=== PATIENT | male | born 1945 | race Hispanic/Latino ===

== ENCOUNTER → 2019-01-17 | Outpatient (CLI) | payer OTHER ==
[~2019-01-17] VITALS: Ht 177.8 cm; Wt 108.9 kg
[~2019-01-17] MED LIST: AMLO5TAB9 PO; BUSP15TA3 PO; CHOL100044 PO; CYAN100099 PO; HYDR25TA PO; LABE200T5 PO; MULT1CAP32 PO; RANO10004 PO; REGADENOSON 0.4 MG/5 ML PF SYG IVP SCH; TAMS-1 PO; VARD20TA PO
== END | disposition home or self-care (01) ==
LOC: SHCH 09:20
PROVIDERS: ATTEND Internal Medicine Cardiovascular Disease
DX: I25.10 Atherosclerotic heart disease of native coronary artery without angina pectoris (principal); I10 Essential (primary) hypertension; E78.5 Hyperlipidemia, unspecified
CPT/HCPCS: 78452; 93017; 96374; A9500 ×2; J2785

== ENCOUNTER 2019-01-22 07:56 | Day surgery (SDC) | payer OTHER ==
[~2019-01-22] VITALS: Ht 177.8 cm; Wt 102.5 kg
[~2019-01-22 07:56] MED LIST changes: -AMLO5TAB9 PO; -BUSP15TA3 PO; -CHOL100044 PO; -CYAN100099 PO; -HYDR25TA PO; -LABE200T5 PO; -MULT1CAP32 PO; -RANO10004 PO; -REGADENOSON 0.4 MG/5 ML PF SYG IVP SCH; +SODIUM CHLORIDE 0.9% 1000ML 1,000 ML IV ONE; -TAMS-1 PO; -VARD20TA PO
[2019-01-22 08:16] VITALS: BP 165/81
[2019-01-22] MEDS ORDERED: HYDR25TA PO (08:49)
[2019-01-22] MEDS ORDERED: VARD20TA PO (08:49)
[2019-01-22] MEDS ORDERED: TAMS-1 PO (08:49)
[2019-01-22] MEDS ORDERED: CHOL100044 PO (08:49)
[2019-01-22] MEDS ORDERED: MULT1CAP32 PO (08:49)
[2019-01-22] MEDS ORDERED: LABE200T5 PO (08:49)
[2019-01-22] MEDS ORDERED: BUSP15TA3 PO (08:49)
[2019-01-22] MEDS ORDERED: CYAN100099 PO (08:49)
[2019-01-22] MEDS ORDERED: AMLO5TAB9 PO (08:49)
[2019-01-22] MEDS ORDERED: RANO10004 PO (08:49)
[2019-01-22] MEDS ORDERED: PROPOFOL 10 MG/ML 20ML VIAL IV ONE (09:49)
[2019-01-22 10:08] VITALS: BP 123/65
[2019-01-22 10:12] VITALS: BP 132/71
[2019-01-22 10:17] VITALS: BP 140/71
[2019-01-22 10:24] VITALS: BP 133/65
== END 2019-01-22 10:42 | disposition home or self-care (01) ==
LOC: DAH 07:56 → ENDO 07:56
PROVIDERS: ATTEND Internal Medicine Gastroenterology
DX: D12.2 Benign neoplasm of ascending colon (principal); D12.5 Benign neoplasm of sigmoid colon; K57.30 Diverticulosis of large intestine without perforation or abscess without bleeding; K64.0 First degree hemorrhoids; I10 Essential (primary) hypertension; E11.9 Type 2 diabetes mellitus without complications; F41.9 Anxiety disorder, unspecified; F32.9 Major depressive disorder, single episode, unspecified; M19.90 Unspecified osteoarthritis, unspecified site; G47.30 Sleep apnea, unspecified; I25.2 Old myocardial infarction; K21.9 Gastro-esophageal reflux disease without esophagitis; Z95.0 Presence of cardiac pacemaker; Z85.46 Personal history of malignant neoplasm of prostate; Z90.49 Acquired absence of other specified parts of digestive tract; Z79.899 Other long term (current) drug therapy
CPT/HCPCS: 45380; 82948 ×2; 88305; 93005; A4606; J2704; J7030

== ENCOUNTER → 2019-01-23 | Outpatient (CLI) | payer OTHER ==
[~2019-01-23] MED LIST changes: +AMLO5TAB9 PO; +BUSP15TA3 PO; +CHOL100044 PO; +CYAN100099 PO; +HYDR25TA PO; +LABE200T5 PO; +MULT1CAP32 PO; +RANO10004 PO; -SODIUM CHLORIDE 0.9% 1000ML 1,000 ML IV ONE; +TAMS-1 PO; +VARD20TA PO
== END | disposition home or self-care (01) ==
LOC: RAH 07:50
PROVIDERS: ATTEND Internal Medicine Gastroenterology
DX: K76.0 Fatty (change of) liver, not elsewhere classified (principal)
CPT/HCPCS: 76700

== ENCOUNTER 2019-04-28 11:41 | Emergency (ER) | payer OTHER ==
[2019-04-28] MEDS ORDERED: SODIUM CHLORIDE 0.9% 1000ML 1,000 ML IV ONE (12:04)
[2019-04-28] MEDS ORDERED: ONDANSETRON HCL 4 MG/2 ML VIAL ONE (12:04)
[2019-04-28 12:33] LABS: BASOPHILS % (AUTO) 0.6 % (0.0-5.0); EOSINOPHILS % (AUTO) 3.4 % (0.0-8.0); HEMATOCRIT 36.7 % (42-54); LYMPHOCYTES % (AUTO) 25.7 % (21.0-51.0); MEAN CORPUSCULAR HGB CONC 34.1 g/dL (32.0-36.0); MEAN CORPUSCULAR VOLUME 87.9 fL (79-99); MONOCYTES % (AUTO) 8.5 % (3.0-13.0); NEUTROPHILS % (AUTO) 61.8 % (40.0-77.0); PLATELET COUNT (AUTO) 271 K/uL (130-400); RED BLOOD CELL COUNT(AUTO) 4.18 MIL/uL (4.50-6.20); RED CELL DISTRIBUTION WIDTH 13.6 % (11.0-15.5); WHITE BLOOD COUNT (AUTO) 9.9 K/uL (4.8-10.8)
[2019-04-28 12:50] LABS: CREATININE 0.8 mg/dL (0.5-1.5)
[2019-04-28 12:54] LABS: ALBUMIN 3.6 g/dL (3.5-5.0); BILIRUBIN,TOTAL 0.5 mg/dL (0.2-1.0); TOTAL PROTEIN, SERUM 8.1 g/dL (6.0-8.3)
[2019-04-28 12:56] LABS: CREATINE KINASE, TOTAL 127 U/L (21-232); LIPASE 73 U/L (114-286)
[2019-04-28] MEDS ORDERED: IOHEXOL 350 MG/ML 100ML INFUS..BTL IV ONE (12:56)
== END 2019-04-28 14:46 | disposition home or self-care (01) ==
LOC: EDH 11:41
DX: K52.9 Noninfective gastroenteritis and colitis, unspecified (principal)
CPT/HCPCS: 36415; 74178; 80053; 82550; 83690; 85025; 96361; 96374; 99285; J2405; J7030; Q9967

== ENCOUNTER → 2022-09-08 | Outpatient (CLI) | payer OTHER ==
[~2022-09-08] MED LIST changes: -AMLO5TAB9 PO; +BUPR-113 PO; +DORZ10DR19 OP; +IPRA3AMP24 IH; -LABE200T5 PO; +LABE200T7 PO; +LATA7.5D OP; +LOSA100T58 PO; +MELA3CAP2 PO; +MELO-106 PO; +PIOG30TA70 PO; -RANO10004 PO; -VARD20TA PO
== END | disposition home or self-care (01) ==
LOC: RAH 13:31
PROVIDERS: ATTEND Internal Medicine Cardiovascular Disease
DX: J84.9 Interstitial pulmonary disease, unspecified (principal); R06.02 Shortness of breath; M47.815 Spondylosis without myelopathy or radiculopathy, thoracolumbar region
CPT/HCPCS: 71046

== ENCOUNTER → 2022-09-23 | Outpatient (CLI) | payer OTHER ==
[~2022-09-23] MED LIST changes: +REGADENOSON 0.4 MG/5 ML PF SYG IVP ONE
== END | disposition home or self-care (01) ==
LOC: SHCH 08:23
PROVIDERS: ATTEND Internal Medicine Cardiovascular Disease
DX: I11.9 Hypertensive heart disease without heart failure (principal); R06.02 Shortness of breath; E78.5 Hyperlipidemia, unspecified; Z79.82 Long term (current) use of aspirin; Z79.899 Other long term (current) drug therapy
CPT/HCPCS: 78452; 96374; 93017; J2785; A9500 ×2

== ENCOUNTER → 2022-10-26 | Outpatient (CLI) | payer OTHER ==
[~2022-10-26] MED LIST changes: +ALBUTEROL 0.083% 2.5 MG/3 ML INH IH ONE; -LOSA100T58 PO; +LOSA100T59 PO; -REGADENOSON 0.4 MG/5 ML PF SYG IVP ONE
== END | disposition home or self-care (01) ==
LOC: RESP 08:29
PROVIDERS: ATTEND Internal Medicine Cardiovascular Disease
DX: R06.02 Shortness of breath (principal)
CPT/HCPCS: 94060; 94727; 94729

== ENCOUNTER → 2023-08-25 | Outpatient (CLI) | payer OTHER ==
[~2023-08-25] MED LIST changes: -ALBUTEROL 0.083% 2.5 MG/3 ML INH IH ONE
[2023-08-25] MEDS: REGADENOSON 0.4 MG/5 ML PF SYG IVP ONE (13:57)
== END | disposition home or self-care (01) ==
LOC: SHCH 08:22
PROVIDERS: ATTEND Internal Medicine Cardiovascular Disease
DX: I25.10 Atherosclerotic heart disease of native coronary artery without angina pectoris (principal)
CPT/HCPCS: 78452; 96374; 93017; J2785; A9500 ×2

== ENCOUNTER 2024-08-07 20:09 | Emergency (ER) | payer OTHER, MEDICARE ==
[~2024-08-07] VITALS: Ht 177.8 cm; Wt 95.3 kg
[~2024-08-07 20:09] MED LIST changes: +AMLO-257 PO; +AMOX1TAB16 PO; +ASPI-1005 PO; +ATOR20TA65 PO; -BUPR-113 PO; -BUSP15TA3 PO; -CHOL100044 PO; +CHOL2000 PO; -DORZ10DR19 OP; +FURO20TA4 PO; -HYDR25TA PO; -IPRA3AMP24 IH; -LATA7.5D OP; -LOSA100T59 PO; -MELA3CAP2 PO; -MELO-106 PO; +METF-444 PO; +MULT400T5 PO; +OMEG100033 PO; -PIOG30TA70 PO; +RANO500T6 PO; +[UNRECOGNIZED DRUG - CODE] PO
--- NOTE | 2024-08-07 20:34 | ERN ---
ED Note History of Present Illness Stated Complaint: HBPL, CHEST PAIN Chief Complaint: Chest Pain Time Seen by MD: 20:11 Dictation: Patient is a 79-year-old male with a past medical history of hypertension, CAD, arrhythmias, diabetes who presented to the ER complaining of chest pain started this evening. Patient states that the pain comes and go, located in the middle of his chest. No radiation. He said the his blood pressure has been elevated lately, he took his morning medication but did not take his evening medications since he was coming to the ER , he prefers to wait on together here to the emergency department to see which medication were given to him. Allergies: Coded Allergies: No Known Drug Allergies (Unverified Allergy, Unknown, 02/17/17) Home Meds Active Scripts Amlodipine Besylate (Amlodipine Besylate) 10 Mg Tablet, 10 MG PO DAILY for 30 Days, #30 TAB 0 Refills Prov:LEMUEL GARCIA MD 08/07/24 Losartan Potassium (Losartan Potassium) 50 Mg Tablet, 1 TAB PO BID for 30 Days, #30 TAB 0 Refills Prov:LEMUEL GARCIA MD 08/07/24 Amoxicillin/Potassium Clav (Amox Tr-K Clv 875-125 mg Tab) 875 Mg-125 Mg Tablet, 1 TAB PO BID for 7 Days, #14 TAB 0 Refills Prov:COCO SAHA MD 04/12/24 Labetalol HCl (Labetalol HCl) 200 Mg Tablet, 200 MG PO BID for 30 Days, #60 TAB Prov:COTY BRAY [facility] 07/15/19 Reported Medications Metformin HCl (Metformin HCl) 500 Mg Tablet, 2 TAB PO BID for 30 Days, #60 TAB 0 Refills 04/10/24 Atorvastatin Calcium (Atorvastatin Calcium) 20 Mg Tablet, 1 TAB PO HS for 30 Days, #30 TAB 0 Refills 04/10/24 Vitamin E (Dl,Tocopheryl Acet) (Vitamin E) 450 Mg (1000 Unit) Capsule, 1 CAP PO DAILY for 30 Days, #30 CAP 0 Refills 03/15/24 Multivitamin with Folic Acid (One Daily Multivitamin Tablet) 400 Mcg Tablet, 1 TAB PO DAILY for 30 Days, #30 TAB 0 Refills 03/15/24 Cholecalciferol (Vitamin D3) (Vitamin D3) 50 Mcg (2000 Unit) Capsule, 1 CAP PO DAILY for 30 Days, #30 CAP 0 Refills 03/15/24 Amlodipine Besylate (Amlodipine Besylate) 5 Mg Tablet, 5 MG PO AM, TAB 03/14/24 [place]-3/Dha/Epa/Fish Oil (Fish Oil 1,000 mg Softgel) 1,000 Mg (120 Mg-180 Mg) Capsule, 1000 MG PO BID, CAP 03/14/24 Furosemide (Furosemide) 20 Mg Tablet, 20 MG PO AM, TAB 03/14/24 Cyanocobalamin (Vitamin B-12) (B-12) 1,000 Mcg Tablet, 1000 MCG PO AM, TAB 03/14/24 Ranolazine (Ranolazine ER) 500 Mg Tab.er.12h, 500 MG PO BID, TAB 03/14/24 Aspirin (ASPIRIN 81MG CHEW TAB) 81 Mg Tab.chew, 81 MG PO DAILY, TAB.CHEW 03/14/24 Tamsulosin HCl (Flomax) 0.4 Mg Cap.er.24h, 0.4 MG PO DAILY, CAPSULE. 01/22/19 Multivitamin (Multivitamins) 1 Each Capsule, 1 EACH PO DAILY, CAP 01/22/19 Past Medical History Past Medical History: A-Fib, Diabetes-Type II, High Cholesterol, Heart Disease, Hypertension Surgical History: None Review of System Dictation NEGATIVE EXCEPT PER HPI Constitutional: Negative for fever,chills, and weight loss Eyes: Negative for injury, pain,redness, and discharge ENT: Negative for injury,pain or swelling Cardiovascular: Chest pain. Respiratory: Negative for shortness of breath, cough, and wheezing, Abdomen/GI: Negative for abdominal pain, nausea, vomiting, diarrhea, and constipation Back: Negative for injury and pain : Negative for injury, bleeding and discharge MS/Extremity: Negative for injury and deformity Skin: Negative for rash, and discoloration Neuro: Negative for headache, weakness, numbness, tingling, and seizure Psych: Negative for suicide ideation, homicidal ideation, and hallucinations Initial Vital Sign VS Vital Signs Date Time Temp Pulse Resp B/P (MAP) Pulse Ox O2 Delivery O2 Flow Rate FiO2 08/07/24 20:21 98.2 73 20 220/106 95 Room Air Physical Exam Dictation General: awake, alert, NAD Head/Face: Normocephalic, atraumatic Eyes: PERRL, EOMI, vision at baseline ENT: oral cavity clear, TMs clear, no signs of infection Neck: Trachea midline, supple, no nuchal rigidity Cardiovascular: RRR, normal S1/S2, No MRGs, no JVD Respiratory: CTAB, no respiratory distress, No rales or wheezes Abdomen: Soft , no tender Skin: Warm, dry, normal turgor, no rash MS/Extremity: Pulses equal, no cyanosis, neurovascular intact, FROM Neuro: COAx4, GCS 15, strength 5/5, CN 2-12 intact, normal cerebellar exam, normal gait, Psych: Normal behavior, mood, and affect normal Results (Laboratory/Radiology) Laboratory/Radiology Laboratory Tests Test 08/07/24 20:35 08/07/24 20:54 08/07/24 21:04 White Blood Count 8.6 K/uL (4.8-10.8) Red Blood Count 4.28 MIL/uL (4.50-6.20) L Hemoglobin 12.6 g/dL (14.0-18.0) L Hematocrit 37.1 % (42-54) L Mean Corpuscular Volume 86.7 fL (79-99) Mean Corpuscular Hemoglobin 29.4 pg (27.0-33.0) Mean Corpuscular Hemoglobin Concent 34.0 g/dL (32.0-36.0) Red Cell Distribution Width 13.4 % (11.0-15.5) Platelet Count 273 K/uL (130-400) Mean Platelet Volume 10.6 fL (7.5-10.5) H Immature Granulocyte % (Auto) 0.5 % (0-1) Neutrophils (%) (Auto) 63.1 % (40.0-77.0) Lymphocytes (%) (Auto) 25.7 % (21.0-51.0) Monocytes (%) (Auto) 7.6 % (3.0-13.0) Eosinophils (%) (Auto) 2.6 % (0.0-8.0) Basophils (%) (Auto) 0.5 % (0.0-5.0) Neutrophils # (Auto) 5.4 K/uL (1.8-7.7) Lymphocytes # (Auto) 2.2 K/uL (1.0-4.8) Monocytes # (Auto) 0.7 K/uL (0.1-1.0) Eosinophils # (Auto) 0.22 K/uL (0.00-0.70) Basophils # (Auto) 0.04 K/uL (0.00-0.20) Absolute Immature Granulocyte (auto 0.04 K/uL (0-1) Nucleated Red Blood Cells 0.0 % (0.0-0.19) Sodium Level 139 mmol/L (136-145) Potassium Level 4.1 mmol/L (3.5-5.1) Chloride Level 103 mmol/L (101-111) Carbon Dioxide Level 31 mmol/L (21-32) Blood Urea Nitrogen 17 mg/dL (7-18) Creatinine 1.2 mg/dL (0.5-1.3) Glomerular Filtration Rate Calc 62 mL/min (>90) Random Glucose 114 mg/dL (70-105) H Total Calcium 9.0 mg/dL (8.5-10.1) Total Creatine Kinase 80 U/L (21-232) # B-Type Natriuretic Peptide 94 pg/mL (0-100) Troponin I < 0.05 ng/mL (0.00-0.05) Urine Color COLORLESS (YELLOW) Urine Appearance CLEAR (CLEAR) Urine pH 7.0 (5.0-8.0) Urine Specific [place] 1.006 (1.001-1.031) Urine Protein NEGATIVE mg/dL (NEGATIVE) Urine Glucose (UA) NEGATIVE mg/dL (NEGATIVE) Urine Ketones NEGATIVE mg/dL (NEGATIVE) Urine Occult Blood NEGATIVE (NEGATIVE) Urine Nitrate NEGATIVE (NEGATIVE) Urine Bilirubin NEGATIVE mg/dL (NEGATIVE) Urine Urobilinogen 0.2 mg/dL (0.2-1.0) Urine Leukocyte Esterase NEGATIVE Federico/uL EKG Comment: Sinus rhythm rate 73 Nonspecific IVCD with LAD Left ventricular hypertrophy with secondary repolarization abnormality. QT 431 QRS 65 Negative for STEMI ED Course ED Course Orders Procedure Category Date Status Time Hydralazine 20mg Inj PHA 08/07/24 Complete (Apresoline 20mg In 20:30 Vital Signs Per CPOE 08/07/24 Transmitted Routine 20:26 B-Type Natriuretic LAB 08/07/24 Complete Peptide 20:26 Chest 1vw RAD 08/07/24 Resulted 20:26 12 Lead Ekg Tracing- EKG 08/07/24 Complete Technical 20:26 Oxygen By Nc/Pulse Ox CPOE 08/07/24 Transmitted 20:26 Maintain Iv CPOE 08/07/24 Transmitted 20:26 Iv Insertion CPOE 08/07/24 Transmitted 20:26 Cardiac Monitoring CPOE 08/07/24 Transmitted 20:26 Pulse Oximetry With CPOE 08/07/24 Transmitted Vs And Prn 20:26 Cbc With Differential LAB 08/07/24 Complete 20:26 Activity: Br W/Brp CPOE 08/07/24 Transmitted With Assist 20:26 Creatine Kinase, Total LAB 08/07/24 Complete 20:26 Urinalysis Profile LAB 08/07/24 Complete 20:26 Troponin Poc Order LAB 08/07/24 Complete Only 20:26 Bedside Troponin-I LAB.ER 08/07/24 In Process (Poc) 20:26 Basic Metabolic Panel LAB 08/07/24 Complete 20:26 Losartan 50 Mg Tablet PHA 08/07/24 Complete (Cozaar 50 Mg Tab) 22:00 Hydralazine 20mg Inj PHA 08/07/24 Transmitted (Apresoline 20mg In 23:00 Current Medications Medications (Trade) Dose Ordered Sig/Bob Route PRN Reason Start Time Stop Time Status Last Admin Dose Admin Hydralazine HCl (APRESOLine 20MG INJ) 10 mg ONCE ONCE IV 08/07/24 20:30 08/07/24 20:31 DC 08/07/24 21:01 Losartan Potassium (CozAAR 50 mg TAB) 50 mg ONCE ONCE PO 08/07/24 22:00 08/07/24 22:01 DC 08/07/24 21:41 Vital Signs Date Time Temp Pulse Resp B/P (MAP) Pulse Ox O2 Delivery O2 Flow Rate FiO2 08/07/24 20:21 98.2 73 20 220/106 95 Room Air Medical Decision Making MDM Patient is a 79-year-old male with a past medical history of hypertension, CAD, arrhythmias, diabetes who presented to the ER complaining of chest pain started this evening. Patient states that the pain comes and go, located in the middle of his chest. No radiation. He said the his blood pressure has been elevated lately, he took his morning medication but did not take his evening medications since he was coming to the ER , he prefers to wait on together here to the emergency department to see which medication were given to him. Vital signs in the triage was remarkable for blood pressure 220/106 We will do workup for chest pain, including troponin, EKG. -angina -hypertensive urgency Hydralazine 20 mg IV ordered Patient to take his night home medication labetalol 200 mg oral. Losartan 50 mg given. Patient was re-evaluate home blood pressure is still elevated with a systolic of 219/diastolic 106. -10 mg hydralazine IV ordered DX & DISP Departure Impression: Primary Impression: Hypertensive urgency Additional Impression: Angina pectoris Condition: Stable Scripts Amlodipine Besylate (Amlodipine Besylate) 10 Mg Tablet 10 MG PO DAILY for 30 Days, #30 TAB 0 Refills Prov: LEMUEL GARCIA MD 08/07/24 Losartan Potassium (Losartan Potassium) 50 Mg Tablet 1 TAB PO BID for 30 Days, #30 TAB 0 Refills Prov: LEMUEL GARCIA MD 08/07/24 Referrals: GLORY MOORE MD (PCP) LEMUEL GARCIA MD Aug 07, 2024 20:34
--- NOTE | 2024-08-07 20:39 | EKG ---
[facility] Test Date: 2024-08-07 Test Time: 20:33:10 Pat Name: MANNY REESE Department: [facility] Room: Gender: M Salvage Determiner: [facility] : 1945 Requested By: LEMUEL THORNE Order Number: [id number] Reading MD: Camryn Stockton Measurements Intervals [place] Rate: 73 P: 1 KS: 205 QRS: -65 QRSD: 129 T: 57 QT: 431 QTc: 477 Interpretive Statements Sinus rhythm Nonspecific IVCD with LAD LVH with secondary repolarization abnormality Compared to ECG 04/10/2024 18:15:51 Intraventricular conduction delay now present Left ventricular hypertrophy now present Early repolarization now present Atrial premature complex(es) no longer present Left anterior fascicular block no longer present Right bundle-branch block no longer present Electronically Signed On 08-08-2024 14:35:27 COMPLEX MANAGER by Camryn Stockton Please click the below link to view image of tracing.
[2024-08-07 20:42] LABS: BASOPHILS # (AUTO) 0.04 K/uL (0.00-0.20); BASOPHILS % (AUTO) 0.5 % (0.0-5.0); EOSINOPHILS # (AUTO) 0.22 K/uL (0.00-0.70); EOSINOPHILS % (AUTO) 2.6 % (0.0-8.0); HEMATOCRIT 37.1 % (42-54); IMMATURE GRANULOCYTE ABSOLUTE 0.04 K/uL (0-1); LYMPHOCYTES # (AUTO) 2.2 K/uL (1.0-4.8); LYMPHOCYTES % (AUTO) 25.7 % (21.0-51.0); MEAN CORPUSCULAR HEMOGLOBIN 29.4 pg (27.0-33.0); MEAN CORPUSCULAR VOLUME 86.7 fL (79-99); MONOCYTES # (AUTO) 0.7 K/uL (0.1-1.0); MONOCYTES % (AUTO) 7.6 % (3.0-13.0); NEUTROPHILS # (AUTO) 5.4 K/uL (1.8-7.7); NEUTROPHILS % (AUTO) 63.1 % (40.0-77.0); PLATELET COUNT (AUTO) 273 K/uL (130-400); RED BLOOD CELL COUNT(AUTO) 4.28 MIL/uL (4.50-6.20); RED CELL DISTRIBUTION WIDTH 13.4 % (11.0-15.5); WHITE BLOOD COUNT (AUTO) 8.6 K/uL (4.8-10.8)
[2024-08-07 20:55] LABS: CREATININE 1.2 mg/dL (0.5-1.3); POTASSIUM 4.1 mmol/L (3.5-5.1)
[2024-08-07] MEDS: hydrALAZine 20MG/ML VIAL IV ONE ×2 (21:01→22:52)
[2024-08-07 21:17] LABS: ADD UA MICROSCOPIC NO; APPEARANCE,URINE CLEAR (CLEAR); BILIRUBIN,URINE NEGATIVE (NEGATIVE); COLOR,URINE COLORLESS (YELLOW); GLUCOSE, URINE (UA) NEGATIVE (NEGATIVE); KETONES,URINE NEGATIVE (NEGATIVE); LEUKOCYTE ESTERASE ,URINE NEGATIVE Leu/uL (NEGATIVE); NITRATE,URINE NEGATIVE (NEGATIVE); OCCULT BLOOD,URINE NEGATIVE (NEGATIVE); PROTEIN,URINE NEGATIVE (NEGATIVE); UROBILINOGEN,URINE 0.2 mg/dL (0.2-1.0)
[2024-08-07] MEDS ORDERED: AMLO-258 PO (21:23)
[2024-08-07] MEDS ORDERED: LOSA50TA64 PO (21:23)
[2024-08-07 21:27] LABS: B-TYPE NATRIURETIC PEPTIDE 94 pg/mL (0-100)
--- NOTE | 2024-08-07 21:37 | HMCIMG ---
PORTABLE CHEST RADIOGRAPH INDICATION: CHEST PAIN COMPARISON: None FINDINGS: Heart size is normal. The pulmonary vascularity and melchor appear normal. No abnormal pulmonary parenchymal opacity or consolidation identified. No significant pleural effusion noted. No pneumothorax detected. IMPRESSION: No radiographic evidence for any acute cardiopulmonary process.
[2024-08-07] MEDS: LoSARTan 50 MG TABLET PO ONE (21:41)
[2024-08-07 23:28] VITALS: BP 142/66; PULSE 80; RESP 20; TEMP 98.6; O2SAT 100
== END 2024-08-07 23:33 | disposition home or self-care (01) ==
LOC: EDH 20:09
DX: I16.0 Hypertensive urgency (principal); I20.9 Angina pectoris, unspecified; E11.9 Type 2 diabetes mellitus without complications; E78.00 Pure hypercholesterolemia, unspecified; I48.91 Unspecified atrial fibrillation; Z79.82 Long term (current) use of aspirin; Z79.84 Long term (current) use of oral hypoglycemic drugs; Z79.899 Other long term (current) drug therapy
CPT/HCPCS: 99285; 96374; 71045; 82550; 84484; 80048; 83880; 85025; 81003; 36415; 96376; 93005; J0360 ×2